=== PATIENT | female | born 1980 | race Caucasian/White ===

== ENCOUNTER → 2020-11-20 | Outpatient (REF) | payer OTHER ==
[~2020-11-20] MED LIST: LOMOTIL2.5 MG PO; METHOTREXATE2.5 MG PO; PREDNISONE10 MG PO; VITAMIN D400 MG PO; ZOFRAN ODT8 MG PO
== END | disposition home or self-care (01) | DRG 552 ==
LOC: DI 09:08
PROVIDERS: ATTEND Nurse Practitioner Family
DX: M54.6 Pain in thoracic spine (principal)

== ENCOUNTER 2024-05-26 23:20 | Emergency (ER) | payer OTHER ==
[~2024-05-26] VITALS: Ht 149.9 cm; Wt 56.0 kg
[2024-05-26 23:36] VITALS: BP 115/67
[2024-05-27] VITALS: BP 104/64
[2024-05-27 00:12] VITALS: BP 104/64
== END 2024-05-27 00:23 | disposition home or self-care (01) | DRG 918 ==
LOC: ED 23:20
DX: T63.301A Toxic effect of unspecified spider venom, accidental (unintentional), initial encounter (principal)